=== PATIENT | female | born 2000 | race Caucasian/White ===

== ENCOUNTER 2024-02-11 14:32 | Emergency (ER) | payer OTHER ==
--- NOTE | 2024-02-11 15:20 | EDPHYS ---
Physician Documentation [facility] Name: Stalin Soler Age: 23 yrs Sex: Female : 2000 Arrival Date: 02/11/2024 Time: 14:32 Bed 12 Private MD: ED Physician Sheng Ansari HPI: 02/10 15:43 This 23 yrs old Female presents to ER via Ambulatory with complaints of Toothache, kb Mouth Problem. 15:43 Pt is a 23 year old female who presents for drainage from dental extraction site and kb pain. States she had her wisdom teeth removed on 01/29/24 and developed an infection to right upper jaw 5 days later. States she was seen at [facility], had a CT scan that showed a sinus infection so she was put on antibiotics. States she followed up with oral surgeon 3 days after that and he did a washout. States the infection hasn't cleared, still has drainage, so she was put on levaquin yesterday. Denies fever, n/v/d, swelling. States she called a different oral surgeon to follow up with but they don't have any availability until February so she came her to get reevaluated. 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 Flu vaccine is up to date. - Infectious Disease History:: Denies. - Social history:: Smoking status: Patient denies any tobacco usage or history of. ROS: 15:48 Constitutional: As per HPI kb Exam: 15:48 Constitutional: This is a well developed, well nourished patient who is awake, alert, kb and in no acute distress. Head/Face: Normocephalic, atraumatic. ENT: Moist Mucous membranes Cardiovascular: Regular rate Respiratory: Respirations even and unlabored. No increased work of breathing. Talking in full sentences Abdomen/GI: Soft, non-tender. No distention Skin: Warm, dry with normal turgor. Normal color. MS/ Extremity: Pulses equal, no cyanosis. Neurovascular intact. Full, normal range of motion. Neuro: Awake and alert, GCS 15, oriented to person, place, time, and situation. Moves all extremities. Normal gait. Vital Signs: 14:54 BP 123 / 63; Pulse 94; Resp 18; Temp 98.2(TE); Pulse Ox 100% on R/A; Weight 61.23 kg; ap3 Height 5 ft. 8 in. ; Pain 7/10; 14:54 Body Mass Index 20.53 (61.23 kg, 172.72 cm) ap3 14:54 Pain Scale: Adult ap3 MDM: 14:51 Patient medically screened. kb 15:49 Differential diagnosis: dental caries, gingivitis, dental abscess, pericoronitis. Data kb reviewed: vital signs, nurses notes. Test considered but Not performed: Other Details serum labs and CT scan considered and discussed with patient. Pt has no swelling, erythema or current drainage. Normal exam, VSS, nontoxic in appearance. Pt started levaquin yesterday. Using shared decision making, we will forego testing at today's visit. Pt educated on strict return precautions and need for follow up with oral surgeon. Pt states she will call again to ask about getting in sooner and to be called if any cancellations occur. . Counseling: I had a detailed discussion with the patient and/or guardian regarding the historical points, exam findings, and any diagnostic results supporting the discharge/admit diagnosis, the need for outpatient follow up, a dentist, to return to the emergency department if symptoms worsen or persist or if there are any questions or concerns that arise at home. Administered Medications: No medications were administered Disposition Summary: 02/11/24 15:19 Discharge Ordered Notes: Location: Home kb Condition: Stable kb Diagnosis - Postop dental infection/pain kb - Acute pain, not elsewhere classified - dental kb Followup: kb - With: Emergency Department - When: As needed - Reason: Worsening of condition Followup: kb - With: Private Physician - When: 2 - 3 days - Reason: Recheck today's complaints, Continuance of care, Re-evaluation by your physician Discharge Instructions: - Discharge Summary Sheet kb - Dental Extraction, Care After, [id number] kb Forms: - Medication Reconciliation Form kb - Antibiotic Education kb - Prescription Opioid Use kb - Patient Portal Instructions kb - Leadership Thank You Letter kb Signatures: Nancy Betancur FNP-C DIE MOUNTER-Ckb Antoinette Miller, RN RN ap3
--- NOTE | 2024-02-11 15:20 | ER ---
Nurse's Notes [facility] Name: Stalin Soler Age: 23 yrs Sex: Female : 2000 Arrival Date: 02/11/2024 Time: 14:32 Bed 12 Private MD: Diagnosis: Acute pain, not elsewhere classified-dental Presentation: 02/10 14:54 Chief complaint: Patient states: she had her wisdom teeth removed on 01/29/24. patient ap3 needed to visit an ER following the procedure due to increased pain and swelling then the oral surgeon again on Friday02/06/24 who re-cleaned her incision sites due to possible infections. patient has been on multiple antibiotics during this time. patient complains of continued pain and drainage to incision site, and her nasal cavity. Coronavirus screen: At this time, the client does not indicate any symptoms associated with coronavirus-19. Ebola Screen: No symptoms or risks identified at this time. Initial Sepsis Screen: Does the patient meet any 2 criteria? HR > 90 bpm. Does the patient have a suspected source of infection? No. Patient's initial sepsis screen is negative. Risk Assessment: Do you want to hurt yourself or someone else? Patient reports no desire to harm self or others. Onset of symptoms was January 29, 2024. 14:54 Method Of Arrival: Ambulatory ap3 14:54 Acuity: KARLA 3 ap3 Triage Assessment: 14:58 General: Appears comfortable, Behavior is calm, cooperative, appropriate for age. Pain: ap3 Complains of pain in right cheek, nose, left cheek, right jaw and left jaw Pain currently is 7 out of 10 on a pain scale. EENT: Reports nasal congestion pain in right cheek, nose, left cheek, right jaw and left jaw drainage from oral surgical wounds. Neuro: Level of Consciousness is awake, alert, obeys commands, Oriented to person, place, time, situation, Appropriate for age. Cardiovascular: Patient's skin is warm and dry. Respiratory: Airway is patent Respiratory effort is even, unlabored, Respiratory pattern is regular, symmetrical. 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 Flu vaccine is up to date. - Infectious Disease History:: Denies. - Social history:: Smoking status: Patient denies any tobacco usage or history of. Screenin:[facility] ED Fall Risk Assessment (Adult) History of falling in the last 3 months, ap3 including since admission No falls in past 3 months (0 pts) Confusion or Disorientation No (0 pts) Intoxicated or Sedated No (0 pts) Impaired Gait No (0 pts) Mobility Assist Device Used No (0 pt) Altered Elimination No (0 pt) Score/Fall Risk Level 0 - 2 = Low Risk Oriented to surroundings, Maintained a safe environment, Educated pt \T\ family on fall prevention, incl call for assistance when getting out of bed, Assessed \T\ reinforced patient's understanding of fall precautions, Provided non-skid footwear, Hourly rounding (assess needs \T\ fall precautionary measures) done, Used ambulatory aids as needed (educated on \T\ assisted with), Used gait belt as appropriate. Abuse screen: Denies threats or abuse. Nutritional screening: No deficits noted. Tuberculosis screening: No symptoms or risk factors identified. Vital Signs: 14:54 BP 123 / 63; Pulse 94; Resp 18; Temp 98.2(TE); Pulse Ox 100% on R/A; Weight 61.23 kg; ap3 Height 5 ft. 8 in. ; Pain 7/10; 14:54 Body Mass Index 20.53 (61.23 kg, 172.72 cm) ap3 14:54 Pain Scale: Adult ap3 ED Course: 14:40 Patient arrived in ED. ra3 14:51 Nancy Betancur FNP-C is PHCP. kb 14:51 Sheng Ansari MD is Attending Physician. kb 14:57 Triage completed. ap3 15:00 Arm band placed on right wrist. ap3 15:00 Patient has correct armband on for positive identification. Bed in low position. Call ap3 light in reach. Side rails up X 1. Adult w/ patient. Provided Education on: call light education. Pulse ox on. NIBP on. 15:23 No provider procedures requiring assistance completed. Patient did not have IV access ap3 during this emergency room visit. Administered Medications: No medications were administered Medication: 15:00 VIS not applicable for this client. ap3 Outcome: 15:19 Discharge ordered by MD. bassett 15:23 Discharged to home ambulatory, with family, ap3 15:23 Condition: good 15:23 Discharge instructions given to patient, Instructed on discharge instructions, follow up and referral plans. Demonstrated understanding of instructions, follow-up care, 15:23 Patient left the ED. ap3 Signatures: Nancy Betancur, ANTONYC DEBBIE-Antoinette Hauser, SAMANTHA RN ap3 Christina uF ra3
[2024-02-11 15:51] VITALS: BP 123/63; TEMP 98.2; O2SAT 100
== END 2024-02-11 15:23 | disposition home or self-care (01) ==
LOC: ER 14:32
DX: T81.49XA Infection following a procedure, other surgical site, initial encounter (principal)